=== PATIENT | female | born 1980 | race Caucasian/White ===

== ENCOUNTER 2017-03-27 18:34 | Emergency (ER) | payer OTHER ==
[~2017-03-27] VITALS: Ht 157.5 cm; Wt 100.0 kg
[2017-03-27] MEDS ORDERED: ATIVAN1 MG PO (18:43)
[2017-03-27] MEDS ORDERED: ZOLOFT50 MG PO (18:43)
[2017-03-27 19:52] LABS: HEMATOCRIT 40.1 % (37.0-47.0); HEMOGLOBIN 13.1 g/dl (12.0-16.0); IMMATURE GRANULOCYTES 0.2 % (0.0-1.0); MEAN CORPUSCULAR HGB 27.8 pG CALC (26.0-32.0); MEAN CORPUSCULAR HGB CONC 32.7 g/L CALC (32.0-36.0); NEUT# 7.02 thou/uL (2.00-7.15); RED BLOOD COUNT 4.72 mill/uL (4.20-5.60); RED CELL DISTRI WIDTH 12.7 % (11.5-15.5)
[2017-03-27 19:54] LABS: URINE BILIRUBIN - DIPSTICK NEGATIVE (NEGATIVE); URINE BLOOD DIPSTICK NEGATIVE (NEGATIVE); URINE CLARITY CLEAR; URINE COLOR YELLOW; URINE GLUCOSE - DIPSTICK NEGATIVE (NEGATIVE); URINE KETONE NEGATIVE (NEGATIVE); URINE LEUK ESTERASE NEGATIVE (NEGATIVE); URINE NITRITE - DIPSTICK NEGATIVE (Negative); URINE PROTEIN - DIPSTICK NEGATIVE (NEG-TRACE); URINE SPECIFIC GRAVITY 1.025
[2017-03-27 20:09] LABS: ALBUMIN 4.4 g/dL (3.2-5.0); ALKALINE PHOSPHATASE 59 u/l (38-126); ANION GAP 15 (6-22 (CALC)); BILIRUBIN, TOTAL 0.6 mg/dL (0.0-1.4); BUN 13 mg/dL (7-17); BUN/CREATININE RATIO 17 (12-20 (CALC)); CALCIUM 9.9 mg/dL (8.4-10.2); CARBON DIOXIDE 26 mmol/l (22-30); CHLORIDE 104 mmol/l (95-108); CREATININE 0.8 mg/dL (0.5-1.0); GFR > 60 ML/MIN (>=60 (CALC)); GFR FOR AFR.AMER. > 60 ML/MIN (>=60 (CALC)); GLUCOSE 85 mg/dL (65-105); POTASSIUM 4.2 mmol/l (3.5-5.1); SGOT/AST 17 u/l (14-36); SGPT/ALT 30 u/l (9-52); SODIUM 141 mmol/l (137-146); TOTAL PROTEIN 7.7 g/dL (6.3-8.2)
[2017-03-27] MEDS ORDERED: ZOFRAN ODT4 MG PO (20:45)
[2017-03-27] MEDS ORDERED: FIORICET PO (20:45)
[2017-03-27 21:54] VITALS: BP 136/70
[2017-03-28] MEDS ORDERED: TORADOL PO (11:38)
== END 2017-03-27 21:58 | disposition home or self-care (01) | DRG 103 ==
LOC: ED 18:34
PROVIDERS: Emergency Medicine
DX: G43.909 Migraine, unspecified, not intractable, without status migrainosus (principal)

== ENCOUNTER 2017-04-07 12:44 | Emergency (ER) | payer OTHER ==
[~2017-04-07] VITALS: Ht 157.5 cm; Wt 102.0 kg
[~2017-04-07 12:44] MED LIST: ATIVAN1 MG PO; FIORICET PO; TORADOL PO; ZOFRAN ODT4 MG PO; ZOLOFT50 MG PO
[2017-04-07] MEDS ORDERED: LORTAB 5-325 MG1 TAB PO (13:14)
[2017-04-07] MEDS ORDERED: PENICILLN VK500 MG PO (13:14)
[2017-04-07 13:25] VITALS: BP 128/84
== END 2017-04-07 13:25 | disposition home or self-care (01) | DRG 159 ==
LOC: ED 12:44
DX: K08.89 Other specified disorders of teeth and supporting structures (principal); K02.9 Dental caries, unspecified

== ENCOUNTER 2017-05-17 01:01 | Emergency (ER) | payer OTHER ==
[~2017-05-17] VITALS: Ht 157.5 cm; Wt 104.0 kg
[~2017-05-17 01:01] MED LIST changes: +LORTAB 5-325 MG1 TAB PO; +PENICILLN VK500 MG PO
[2017-05-17] MEDS ORDERED: NAPROSYN500 MG PO (02:21)
[2017-05-17 03:00] VITALS: BP 143/91
== END 2017-05-17 03:00 | disposition home or self-care (01) | DRG 552 ==
LOC: ED 01:01
DX: S16.1XXA Strain of muscle, fascia and tendon at neck level, initial encounter (principal); X50.0XXA Overexertion from strenuous movement or load, initial encounter; Y93.89 Activity, other specified

== ENCOUNTER 2017-09-03 16:55 | Emergency (ER) | payer OTHER ==
[~2017-09-03] VITALS: Ht 157.5 cm; Wt 104.6 kg
[~2017-09-03 16:55] MED LIST changes: +NAPROSYN500 MG PO
[2017-09-03] MEDS ORDERED: TRAMADOL HYDROC50 MG (17:29)
[2017-09-03] MEDS ORDERED: PENICILLN VK500 MG PO (17:59)
[2017-09-03] MEDS ORDERED: LORTAB 5/3255 MG PO (17:59)
[2017-09-03 18:07] VITALS: BP 171/98
== END 2017-09-03 18:12 | disposition home or self-care (01) | DRG 159 ==
LOC: ED 16:55
DX: K08.89 Other specified disorders of teeth and supporting structures (principal)

== ENCOUNTER 2019-10-04 15:30 | Emergency (ER) | payer SELFPAY ==
[~2019-10-04 15:30] MED LIST changes: +LORTAB 5/3255 MG PO; +TRAMADOL HYDROC50 MG
[2019-10-04] MEDS ORDERED: PENICILLN VK500 MG PO (17:18)
[2019-10-04 17:28] VITALS: BP 127/86
== END 2019-10-04 17:28 | disposition home or self-care (01) | DRG 159 ==
LOC: ED 15:30
DX: K04.7 Periapical abscess without sinus (principal); K02.9 Dental caries, unspecified